=== PATIENT | male | born 1995 | race Caucasian/White ===

== ENCOUNTER 2019-07-02 09:13 | Emergency (ER) | payer MEDICAID ==
[~2019-07-02] VITALS: Ht 175.3 cm; Wt 68.2 kg
[2019-07-02 09:17] VITALS: Ht 175.3 cm; Wt 68.2 kg
[2019-07-02 11:14] LABS: APPEARANCE CLEAR (CLEAR); BILIRUBIN NEGATIVE (NEGATIVE); COLOR YELLOW (YELLOW); GLUCOSE NEGATIVE (NEGATIVE); KETONE SMALL mg/dL (NEGATIVE); NITRITE NEGATIVE (NEGATIVE); PROTEIN NEGATIVE (NEGATIVE); SPECIFIC GRAVITY 1.005 (1.005-1.020)
[2019-07-02] MEDS ORDERED: IBUPROFEN800 MG PO (12:04)
[2019-07-02 12:23] VITALS: BP 112/72
== END 2019-07-02 12:15 | disposition home or self-care (01) ==
LOC: D.ER 09:13
PROVIDERS: Family Medicine
DX: M54.5 Low back pain (principal)